=== PATIENT | male | born 1995 | race Caucasian/White ===

== ENCOUNTER 2017-10-11 16:25 | Inpatient (IN) | payer OTHER ==
[~2017-10-11] VITALS: Ht 172.7 cm; Wt 73.0 kg
[~2017-10-11 16:25] MED LIST: BENTYL20 MG PO; DICYCLOMINE HCL20 MG PO; PEPCID20 MG PO; POTASSIUM CHLO20 ME2 PO; PROMETHAZINE HC25 M1 PO; PROTONIX40 MG PO; ZOFRAN ODT4 MG PO; ZOFRAN4 MG PO
[2017-10-11 18:43] LABS: HEMATOCRIT 38.3 % (38.0-50.0); HEMOGLOBIN 13.3 G/DL (12.5-16.6); MCH 29.4 PG (29.0-34.0); MCHC 34.7 G/DL (30.0-36.0); MCV 84.5 FL (86-99); PLATELET COUNT 195 K/uL (156-360); RBC DIS.WIDTH-CV 12.5 % (11.8-14.6); RBC DIS.WIDTH-SD 38.8 % (39-53); RED BLOOD COUNT 4.53 M/uL (4.00-5.50); WHITE BLOOD COUNT 16.4 K/uL (4.1-10.2)
[2017-10-11 18:57] LABS: CHLORIDE 102 mEq/L (99-109); POTASSIUM 3.9 mEq/L (3.7-5.4); SODIUM 139 mEq/L (136-147)
[2017-10-11 18:58] LABS: GLUCOSE 111 mg/dL (70-99)
[2017-10-11 19:02] LABS: CREATININE 0.8 mg/dL (0.6-1.3); GFR ESTIMATE (CALCULATED) > 59 mL/min/ (58.99-99999); SERUM ETHYL ALCOHOL < 10 mg/dL
[2017-10-11 19:04] LABS: UREA NITROGEN (BUN) 6 mg/dL (9-23)
[2017-10-11 19:05] LABS: SALICYLATE < 5.0 MG/DL (15-30)
[2017-10-11 19:06] LABS: ACETAMINOPHEN (TYLENOL) < 10 mcg/mL (10-30)
[2017-10-11 19:56] LABS: AMPHETAMINE NEGATIVE (500 ng/mL); BARBITURATES NEGATIVE (200 ng/mL); BENZODIAZEPINES NEGATIVE (150 ng/mL); BUPRENORPHINE NEGATIVE (10 ng/mL); COCAINE PRESUMPTIVE POSITIVE (150 ng/mL); METHADONE NEGATIVE (200 ng/mL); METHAMPHETAMINE NEGATIVE (500 ng/mL); OPIATES (MORPHINE) NEGATIVE (100 ng/mL); OXYCODONE NEGATIVE (100 ng/mL); PHENCYCLIDINE NEGATIVE (25 ng/mL); PROPOXYPHENE NEGATIVE (300 ng/mL); THC CANNABINOIDS PRESUMPTIVE POSITIVE (50 ng/mL); TRICYCLIC ANTIDEPRESSANTS NEGATIVE (300 ng/mL)
[2017-10-11 19:58] VITALS: BP 132/76
[2017-10-12 00:17] VITALS: BP 136/62
[2017-10-12 07:55] VITALS: BP 111/67
[2017-10-12 15:50] VITALS: BP 121/64
== END 2017-10-12 15:44 | disposition left against medical advice (07) | DRG 894 ==
LOC: EME 16:25 → EDOF 18:20 → 1WEST 18:20 → ENRESERV 19:55 → 1WEST 19:55
PROVIDERS: Emergency Medicine
PROC: HZ2ZZZZ Detoxification Services for Substance Abuse Treatment (ICD-10-PCS; principal; 2017-10-11)
DX: F11.20 Opioid dependence, uncomplicated (principal); T40.1X1A Poisoning by heroin, accidental (unintentional), initial encounter; F12.90 Cannabis use, unspecified, uncomplicated; F14.10 Cocaine abuse, uncomplicated; F17.200 Nicotine dependence, unspecified, uncomplicated; Z81.8 Family history of other mental and behavioral disorders
CPT/HCPCS: 80048; 84999; 85027; 90686; 90839; 97150 GO; 97165 GO; 99281; 99285; G0480; Q0177